=== PATIENT | female | born 1995 | race Caucasian/White ===

== ENCOUNTER 2022-07-09 15:22 | Emergency (ER) | payer OTHER, SELFPAY ==
[2022-07-09 15:24] VITALS: BP 118/78; PULSE 104; RESP 16; TEMP 36.7; O2SAT 98; BMI 28.9
--- NOTE | 2022-07-09 15:47 | EKG12_ITS ---
Test Reason : PALPS Blood Pressure : / mmHG Vent. Rate : 089 BPM Atrial Rate : 089 BPM P-R Int : 116 ms QRS Dur : 072 ms QT Int : 362 ms P-R-T Axes : 019 001 025 degrees QTc Int : 440 ms Sinus rhythm with sinus arrhythmia with occasional Premature ventricular complexes Otherwise normal ECG Confirmed by LUPIS VALENZUELA, PARVIZ ([id number]), deputy editor in chief VINH GAMBOA ([id number]) on 07/12/2022 12:57:52 PM Referred By: GULSHAN Confirmed By:PARVIZ BAUGH MD
--- NOTE | 2022-07-09 16:02 | EX.ED.DYSGE1 ---
HPI History of Present Illness Chief Complaint: Palpitations Informant: patient Onset/Context/Timing Onset: Days (Past 2 days intermittent) Context: Sudden Onset Timing: Intermittent (Duration varies from 1 to 2 minutes to 5-10.) Quality: Palpitations left-sided chest Location: Left-sided chest Current Severity: Gone Maximum Severity: Moderate Worsened by: Nothing specific Relieved by: Not applicable Associated Symptoms Associated Symptoms: None Narrative Narrative: Patient is a 26-year-old female with no significant past medical history on no medication. She denies smoking, alcohol use or drug use. There is no family history of cardiac disease. She denies heat or cold intolerance. She denies unintentional weight loss. She denies fever or chills. She denies leg pain, swelling discoloration. She denies history of VTE. There is no history of chest trauma. She does admit to 1 cup of coffee a day. Prior to the past 2 days she is never experienced this before. Prior similar symptoms: No Recent Illness/Hospitalization: No PFSH PFSH Medical History no medical history no medical history Home Medications NK 07/09/22 [History Last Taken Unknown] Allergy/AdvReac Type Severity Reaction Status Date / Time MALIGNANT HYPERTHERMIA AdvReac Severe Uncoded 07/09/22 15:29 Surgical History (Updated 07/09/22 @ 16:10 by Carie Castrejon) History of cholecystectomy Surgical History no surgical history no surgical history Social History (Updated 07/09/22 @ 16:[address] Octavio Marx MD) Smoking Status: Never smoker alcohol intake: never substance use type: does not use ROS ROS ED Constitutional Constitutional ED: Denies chills, fever(s), subjective, sweats or weight loss Eyes Eyes: Denies blurry vision, change in vision or diplopia ENT ENT ED: Denies rhinorrhea or sore throat Cardiovascular Cardiovascular: Reports palpitations; Denies chest pain, orthopnea, paroxysmal nocturnal dyspnea or racing heartbeat Respiratory/Chest Respiratory/Chest: Denies cough, dyspnea, dyspnea on exertion, orthopnea or paroxysmal nocturnal dyspnea Gastrointestinal Gastrointestinal: Denies abdominal pain, nausea or vomiting Neurologic Neurologic: Denies paresthesias or weakness Psychiatric Psychiatric: Denies anxiety Endocrine Endocrinology: Denies cold intolerance or heat intolerance Hematologic/Lymphatic Hematologic/Lymphatic: Reports none EXAM Physical Exam Const Vital Signs: 07/09/22 15:24 07/09/22 15:24 07/09/22 16:01 Temperature 98.0 F 98.0 F Temperature Source Temporal Temporal Pulse Rate 104 H 104 H Respiratory Rate 16 16 Respiratory Effort Normal Non-Labored Blood Pressure 118/78 118/78 Blood Pressure Mean 91 91 Pulse Ox 98 98 Oxygen Delivery Method Room Air Room Air 07/09/22 17:43 Temperature Temperature Source Pulse Rate 89 Respiratory Rate 17 Respiratory Effort Blood Pressure 104/63 Blood Pressure Mean 76 Pulse Ox 99 Oxygen Delivery Method Room Air Positive well nourished and well developed General Appearance ED: well developed and NAD; Negative for cyanotic, diaphoretic or pallor HEENT Reports moist mucous membranes HEENT Narrative: Head is atraumatic normocephalic. Ears normal. Nares patent. Uvula midline. No deviation of protrusion. There is no erythema or exudate. Negative for trauma Eyes PERRL and EOMs intact bilaterally General Eye ED: Negative for pale conjunctiva or scleral icterus Neck no lymphadenopathy, supple and no JVD Chest Wall inspection of chest normal and palpation of chest normal Resp normal respiratory effort and clear to auscultation bilaterally Cardio regular rate, regular rhythm, S1 normal heart sound, S2 normal heart sound and no murmurs GI normal to inspection, nondistended, normoactive bowel sounds, non-tender, non-distended and no masses; Negative for hepatosplenomegaly Back/Spine no CVA tenderness Cervical Spine: Negative for cervical spine tenderness Thoracic Spine / Upper Back: Negative for thoracic spinal tenderness Extremity normal to inspection Extremity Narrative: There is no asymmetry, swelling, discoloration, leg vein distention, palpable cords or tenderness along the distribution of the deep venous system. General Extremety ED: Negative for edema or tenderness General Extremity: Negative for edema Neuro oriented x3, CN's II-XII intact bilaterally and no sensory deficits noted Sensorium / Orientation: alert Sensory Exam: sensory level loss detected Psych mental status grossly normal Skin no rashes or lesions noted, no wounds and skin turgor normal General Skin Exam: Negative for jaundice or pallor MDM MDM MDM Narrative Medical decision making narrative: Reporting palpitation. Will place on monitor and see if there is any ectopy. EKG was obtained to determine if there is any evidence to suggest W PW or living long Ganong syndrome or short QT interval etc. Electrolytes were obtained to assess potassium and TSH was obtained to rule out thyroid disease. Patient was informed of results at 1850. Her questions were answered to her satisfaction. Should be discharged home. Lab Data Attestation: I reviewed the patient's lab results. Lab results narrative: Laboratory work-up is unremarkable. Labs: Laboratory Results - last 24 hr 07/09/22 16:05 Sodium 141 Potassium 3.6 Chloride 104 Carbon Dioxide 31.0 Anion Gap 6 BUN 13 Creatinine 0.87 Estim Creat Clear Calc 83.13 Est GFR (MDRD) Af Amer 100 Est GFR (MDRD) Non-Af 82 BUN/Creatinine Ratio 15.0 Glucose 117 H Calcium 9.0 TSH 0.66 Discharge Plan Triage Chief Complaint: Palpitations ED Provider: Octavio Marx Dx/Rx/DC Orders Clinical Impression: Palpitations, Premature ventricular beats Instructions: Premature Ventricular Contractions, ED Palpitations Prescriptions: No Action NK Primary Care Provider: Care Physician,No Primary Referrals: Jojo Cross MD [Med Staff - Health Information Technologist] - 1-2 Weeks Care Physician,No Primary [Primary Care Provider] - Disposition Disposition: Home, Self Care
[2022-07-09 16:34] LABS: Anion Gap 6 (5-15); BUN 13 mg/dL (7-18); Chloride 104 mmol/L (98-107); Creatinine, Serum 0.87 mg/dL (0.55-1.02); EST Glomerular Filtration Rate 82 mL/min (>60); Est Glom Filt Rate - Afr Amer 100 mL/min (>60); Estimated Creatinine Clearance 83.13 ml/min; Glucose 117 mg/dL (74-106); Potassium 3.6 mmol/L (3.5-5.1); Sodium Level 141 mmol/L (136-145); Thyroid Stim Hormone (TSH) 0.66 uIU/mL (0.358-3.74)
--- NOTE | 2022-07-09 17:09 | CM.ED ---
SW Note SW reviewed chart and noted that patient had no PCP. SW met with patient and introduced self and role. Patient confirmed she has no PCP. SW provided patient with [facility] Healthcare Provider Directory. No further issues or concerns voiced. Plan: Resources Provided Isabel LUDWIG
[2022-07-09 17:43] VITALS: BP 104/63; PULSE 89; RESP 17; O2SAT 99
[2022-07-09 19:09] VITALS: BP 116/57; PULSE 75; RESP 16; O2SAT 97
== END 2022-07-09 19:09 | disposition home or self-care (01) ==
PROVIDERS: Emergency Provider Emergency Medicine; Visit Provider Emergency Medicine
DX: R00.2 Palpitations (principal); I49.3 Ventricular premature depolarization
CPT/HCPCS: 80048; 84443; 93005; 99284; A4216

== ENCOUNTER 2023-01-27 04:03 | Emergency (ER) | payer MEDICAID, SELFPAY ==
[2023-01-27 04:04] VITALS: BP 136/87; PULSE 94; RESP 19; TEMP 37.2; O2SAT 98; BMI 29.9
--- NOTE | 2023-01-27 04:29 | EKG12_ITS ---
Test Reason : DYSRHYTHMIA Blood Pressure : / mmHG Vent. Rate : 066 BPM Atrial Rate : 066 BPM P-R Int : 126 ms QRS Dur : 078 ms QT Int : 406 ms P-R-T Axes : 028 000 014 degrees QTc Int : 425 ms Normal sinus rhythm Normal ECG Confirmed by ZIA RAGSDALE ([id number]), newspaper photo editor VINH GAMBOA ([id number]) on 01/31/2023 8:00:41 AM Referred By: ADALI Confirmed By:ZIA RAGSDALE
[2023-01-27 04:42] LABS: Absolute Lymphocyte Count 1.71 X10^3/uL (0.83-4.51); Absolute Neutrophil Count 3.7 X10^3/uL (2.0-7.7); Basophil# 0.05 X10^3/uL; Basophil% 0.8 % (0-1); Eosinophil# 0.09 X10^3/uL; Eosinophils% 1.5 % (0-5); Hematocrit 42.9 % (37-47); Hemoglobin 14.3 g/dL (12.0-15.0); Lymphocyte # 1.71 X10^3/ul (0.83-4.51); Lymphocyte % 27.9 % (19-41); Mean Corp Hgb Conc 33.3 g/dL (32-36); Mean Corpuscular Hgb 31.1 pg (27.0-32.0); Mean Corpuscular Volume 93.3 fL (81-99); Mean Platelet Vol. 9.7 fl (6.2-12.0); Monocyte# 0.52 X10^3/uL; Monocyte% 8.5 % (0-10); NRBC Flagged by Analyzer 0 % (0-5); Neutrophil # 3.74 X10^3/uL (2.7-7.7); Neutrophil % 60.8 % (47-70); Platelet Count 239 K/mm3 (150-450); RBC Distribution Width CV 11.5 % (11.6-14.6); RBC Distribution Width SD 39.1 fl (35.1-43.9); White Blood Count 6.1 K/mm3 (4.4-11.0)
--- NOTE | 2023-01-27 04:46 | EX.ED.DYSGE1 ---
HPI History of Present Illness Chief Complaint: Palpitations Narrative Narrative: Patient is a 27-year-old female who presents with complaint of palpitations. 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 She states that this evening she was sleeping when she was woken from sleep by her smart watch stating her heart rate was elevated. She states she has a home many EKG machine and then checked her rhythm on that to confirm it was fast and states it was going approximate 120 bpm. She states this is the first time this is ever happened while she was sleeping. She denies any illicit drug use or excessive stimulant use. She denies any family history of cardiac dysrhythmia. She denies any recent travel surgery or history of DVT/PE. She states she is feeling better at this time but with the palpitations occurring for the first time while asleep she presents for evaluation. PFSH PFS Home Medications NK 07/09/22 [History Last Taken Unknown] Allergy/AdvReac Type Severity Reaction Status Date / Time MALIGNANT HYPERTHERMIA AdvReac Severe Uncoded 07/09/22 15:29 Surgical History History of cholecystectomy Social History (Updated 07/09/22 @ 16:[address] Octavio Marx MD) Smoking Status: Never smoker alcohol intake: never substance use type: does not use ROS ROS ED Constitutional Constitutional ED: Denies chills or fever(s) ENT ENT ED: Denies sore throat Cardiovascular Cardiovascular: Reports palpitations and racing heartbeat; Denies chest pain Respiratory/Chest Respiratory/Chest: Denies cough or dyspnea Gastrointestinal Gastrointestinal: Denies abdominal pain, diarrhea, nausea or vomiting Genitourinary Genitourinary ED: Denies dysuria Musculoskeletal Musculoskeletal: Denies myalgias Integumentary Denies rash Neurologic Neurologic: Denies headache(s) Psychiatric Psychiatric: Denies anxiety Hematologic/Lymphatic Hematologic/Lymphatic: Denies easy bleeding or easy bruising EXAM Physical Exam Const Vital Signs: 01/27/23 04:04 01/27/23 04:07 Temperature 99 F Temperature Source Temporal Pulse Rate 94 Respiratory Rate 19 H Respiratory Effort Normal Blood Pressure 136/87 H Blood Pressure Mean 103 Pulse Ox 98 Oxygen Delivery Method Room Air Positive well nourished and well developed General Appearance ED: well developed; Negative for pallor Eyes PERRL and EOMs intact bilaterally Neck supple Neck Narrative: Thyroid is without nodule or goiter Resp normal respiratory effort and clear to auscultation bilaterally Cardio regular rate and regular rhythm Rate: other Other Details: Radial pulses are plus 2 out of 4 bilaterally are equal and symmetric Carotid pulses are equal and symmetric as well Extremity normal to inspection Extremity Narrative: No asymmetric edema no pitting edema negative Homans' sign bilaterally Neuro oriented x3, CN's II-XII intact bilaterally and no sensory deficits noted Sensorium / Orientation: alert Psych mental status grossly normal Skin no rashes or lesions noted General Skin Exam: Negative for pallor MDM MDM MDM Narrative Medical decision making narrative: Patient presented to the ER with spontaneous resolution of her palpitations/tachycardia. She denied any excessive stimulant use or illicit drug use or family history of abnormal rhythm or even previous diagnosis of a cardiac dysrhythmia just PVCs. However as this was the first time she had developed tachycardia while sleeping I did elect to perform basic laboratory testing. Work-up revealed no anemia or electrolyte disturbance or signs of cardiac damage or even elevation to the TSH to suggest hypo versus hyperthyroidism. The patient had a normal sinus rhythm on the monitor and EKG and felt perfectly normal upon reevaluation without any treatment. Therefore at this time I do feel patient most likely has inappropriate tachycardia syndrome but as there is still risk she could be developing a cardiac dysrhythmia such as atrial fibrillation atrial flutter or SVT or multifocal atrial tachycardia I did advise that she follow-up with her manager business once again and discussed wearing a Holter monitor or even having a referral to an EP physician. Patient and family are agreeable to this plan and therefore should be discharged at this time History & Record Review Discussion w/independent historian: Patient and Family Lab Data Attestation: I reviewed the patient's lab results. Labs: Laboratory Results - last 24 hr 01/27/23 01/27/23 01/27/23 04:37 04:37 04:50 WBC 6.1 RBC 4.60 Hgb 14.3 Hct 42.9 MCV 93.3 MCH 31.1 MCHC 33.3 RDW Std Deviation 39.1 RDW Coeff of Kody 11.5 L Plt Count 239 MPV 9.7 Immature Gran % (Auto) 0.500 Neut % (Auto) 60.8 Lymph % (Auto) 27.9 [place] % (Auto) 8.5 Eos % (Auto) 1.5 Baso % (Auto) 0.8 Absolute Neuts (auto) 3.7 Absolute Lymphs (auto) 1.71 Nucleated RBC % 0 Sodium 135 L Potassium 3.9 Chloride 109 H Carbon Dioxide 23.0 Anion Gap 3 L BUN 13 Creatinine 0.67 Estim Creat Clear Calc 106.98 Est GFR (MDRD) Af Amer 133 Est GFR (MDRD) Non-Af 110 BUN/Creatinine Ratio 19.3 Glucose 100 Calcium 8.8 Magnesium 1.9 Troponin I High Sens 3 TSH 2.65 Urine Test Negative Discharge Plan Triage Chief Complaint: Palpitations ED Provider: Jeff Major Dx/Rx/DC Orders Clinical Impression: Heart palpitations, Inappropriate sinus tachycardia Instructions: Your Heart's Electrical System, ED Palpitations Prescriptions: No Action NK Referrals: Carmelo Mills USED BUILDING MATERIALS YARD WORKER, USED BUILDING MATERIALS YARD WORKER-C [Non-Staff] - Activity Restrictions/Additional Instructions: Please follow-up with your manager business for repeat evaluation and to discuss need for Holter monitor testing and possible chopped strand operator referral. If you have any further concerns please return to the hospital for repeat evaluation Disposition Disposition: Home, Self Care
[2023-01-27 04:59] LABS: Internal QC Validated? YES +Cl - CLEAR BKGD; Pregnancy, Urine Negative Negative
[2023-01-27 05:07] LABS: Anion Gap 3 (5-15); BUN 13 mg/dL (7-18); BUN/Creat Ratio 19.3 RATIO (10-20); Calcium,Total 8.8 mg/dL (8.5-10.1); Chloride 109 mmol/L (98-107); Creatinine, Serum 0.67 mg/dL (0.55-1.02); EST Glomerular Filtration Rate 110 mL/min (>60); Est Glom Filt Rate - Afr Amer 133 mL/min (>60); Estimated Creatinine Clearance 106.98 ml/min; Glucose 100 mg/dL (74-106); Magnesium 1.9 mg/dL (1.6-2.6); Potassium 3.9 mmol/L (3.5-5.1); Sodium Level 135 mmol/L (136-145); Thyroid Stim Hormone (TSH) 2.65 uIU/mL (0.358-3.74); Troponin-I HS 3 pg/mL (3.0-54.0)
[2023-01-27 05:40] VITALS: BP 115/90; PULSE 86; RESP 16; O2SAT 99
== END 2023-01-27 05:41 | disposition home or self-care (01) ==
PROVIDERS: Emergency Provider Emergency Medicine; Visit Provider Emergency Medicine
DX: R00.2 Palpitations (principal); R00.0 Tachycardia, unspecified
CPT/HCPCS: 80048; 81025; 83735; 84443; 84484; 85025; 93005; 99282

== ENCOUNTER 2025-08-08 10:24 | Emergency (ER) | payer MEDICAID, SELFPAY ==
[2025-08-08 10:25] VITALS: BP 126/83; PULSE 96; RESP 17; TEMP 36.4; O2SAT 100; BMI 35.3
--- NOTE | 2025-08-08 10:41 | EX.ED.DYSGE1 ---
HPI History of Present Illness Chief Complaint: Headache Informant: patient Narrative Narrative: 29-year-old female presenting to the emergency room with headache and vomiting. Patient states that last night around 1800 hrs. she developed a left-sided headache described as mostly left frontal but also in the back of her head radiating up and over. She states it is still present this morning and she unexpectedly had emesis. She states that she tried to take Tylenol but threw that up. Patient states that after vomiting she looked in the mirror and she noted some red spots around her eyes and her forehead. She states that yesterday she was seen in urgent care for pain on the right side of her neck. Patient denies any URI symptoms diarrhea nausea or other rashes. Other than headache the patient denies any other neurologic findings such as arm or leg weakness paresthesias or speech changes. Patient denies any nasal congestion. She states that she generally feels unwell/fatigued. PFSH PFSH Home Medications ?Medication ?Instructions ?Recorded ?Last Taken ?Type ketorolac 10 mg tablet 10 mg PO Q8H PRN pain #9 tabs 08/08/25 Unknown Rx metoprolol succinate 25 mg 25 mg PO DAILY 08/08/25 Unknown History tablet,extended release 24 hr ondansetron 4 mg disintegrating 4 mg PO Q6H PRN PRN Nausea #15 tabs 08/08/25 Unknown Rx tablet Surgical History History of cholecystectomy Social History Smoking Status: Never smoker alcohol intake: never substance use type: does not use ROS ROS ED Constitutional Constitutional ED: Denies chills, fever(s) or weight loss Eyes Eyes: Denies change in vision or diplopia ENT ENT ED: Denies ear pain, rhinorrhea or sore throat Cardiovascular Cardiovascular: Denies chest pain, orthopnea, palpitations or racing heartbeat Respiratory/Chest Respiratory/Chest: Denies cough, dyspnea or orthopnea Gastrointestinal Gastrointestinal: Reports vomiting; Denies abdominal pain, diarrhea or nausea Genitourinary Genitourinary ED: Denies dysuria, hematuria or urinary frequency Musculoskeletal Musculoskeletal: Reports neck pain; Denies arthralgias, back pain or myalgias Integumentary Reports rash; Denies abscess Neurologic Neurologic: Reports headache(s); Denies paresthesias or weakness Psychiatric Psychiatric: Denies anxiety, depression, suicidal ideation or suicidal thoughts Endocrine Endocrinology: Denies polydipsia, polyphagia or polyuria Allergic/Immunologic Allergic/Immunologic ED: Denies mouth swelling, tongue swelling or urticaria EXAM Physical Exam Const Vital Signs: 08/08/25 10:25 Temperature 97.5 F L Temperature Source Oral Pulse Rate 96 Respiratory Rate 17 Blood Pressure 126/83 H Blood Pressure Mean 97 Pulse Ox 100 Oxygen Delivery Method Room Air Positive well nourished and well developed General Appearance ED: well developed HEENT Reports normocephalic, head/scalp atraumatic and moist mucous membranes HEENT Narrative: Small subconjunctival hemorrhage laterally in the left eye Eyes PERRL and EOMs intact bilaterally Neck no lymphadenopathy, supple and no JVD Neck Narrative: No meningeal signs Resp normal respiratory effort and clear to auscultation bilaterally Cardio regular rate, regular rhythm and no murmurs GI normal to inspection, nondistended, normoactive bowel sounds and non-tender Palpation: soft Back/Spine no CVA tenderness and normal ROM Extremity normal to inspection General Extremety ED: Negative for edema General Extremity: Negative for edema Neuro oriented x3 and CN's II-XII intact bilaterally Sensorium / Orientation: alert Motor Exam: strength 5/5 throughout Psych mental status grossly normal Mood & Affect: Negative for depressed or tearful Skin no rashes or lesions noted and no wounds Skin Narrative: There are small petechiae in the periorbital region some coalesce more so on the forehead. They do not mario. MDM MDM MDM Narrative Medical decision making narrative: Differential diagnosis includes but not limited to primary headache disorder viral syndrome meningitis URI viral gastritis CBC shows a white count of 7.8 with 79.4 neutrophils 16.3 lymphocytes. CMP shows a glucose of 111. test is negative. Patient received Zofran as well as a liter of IV fluids. At this point the patient can be discharged home. I will be writing for Zofran and Toradol at home. Would recommend continued home observation and hydration. Return if worsening or concerns History & Record Review Discussion w/independent historian: Patient Lab Data Attestation: I reviewed the patient's lab results. Labs: Laboratory Results - last 24 hr 08/08/25 10:48 WBC 7.8 RBC 4.93 Hgb 14.8 Hct 43.0 MCV 87.2 MCH 30.0 MCHC 34.4 RDW Std Deviation 37.3 RDW Coeff of Kody 11.7 Plt Count 361 MPV 9.2 Immature Gran % (Auto) 0.400 Neut % (Auto) 79.4 H Lymph % (Auto) 16.3 L [place] % (Auto) 3.1 Eos % (Auto) 0.3 Baso % (Auto) 0.5 Absolute Neuts (auto) 6.2 Absolute Lymphs (auto) 1.27 Nucleated RBC % 0 Sodium 140 Potassium 4.1 Chloride 103 Carbon Dioxide 25.6 Anion Gap 11 BUN 9 Creatinine 0.71 Estim Creat Clear Calc 127.22 Est GFR (MDRD) Non-Af 116 BUN/Creatinine Ratio 12.6 Glucose 111 H Calcium 9.4 Total Bilirubin 0.40 AST 15 ALT 10 Alkaline Phosphatase 73 Total Protein 8.0 Albumin 4.3 Globulin 3.6 Albumin/Globulin Ratio 1.2 Serum , Qual NEGATIVE Discharge Plan Triage Chief Complaint: Headache ED Provider: Chad Frankel Dx/Rx/DC Orders Clinical Impression: Headache, Vomiting Instructions: ED Headache Unspecified, ED Vomiting (Adult) Prescriptions: New ketorolac 10 mg tablet 10 mg PO Q8H PRN (Reason: pain) Qty: 9 0RF Rx Instructions: maximum total duration of 5 days from all oral, intranasal, or parenteral formulations ondansetron 4 mg tablet,disintegrating 4 mg PO Q6H PRN PRN (Reason: Nausea) Qty: 15 0RF No Action metoprolol succinate 25 mg tablet extended release 24 hr 25 mg PO DAILY Primary Care Provider: Adalgisa Mills Referrals: [facility] Doctor,Out of [Non-Staff, Medical] Activity Restrictions/Additional Instructions: Orally hydrate at home as best you can. Return if worsening or concerns. Monitor for new symptomology. Print Language: [place] Disposition Disposition: Home, Self Care
[2025-08-08 10:52] LABS: Hematocrit 43.0 % (37-47); Hemoglobin 14.8 g/dL (12.0-15.0); Immature Granulocytes Count 0.030 X10^3/uL (0.0-0.0); Mean Corp Hgb Conc 34.4 g/dL (32-36); Mean Corpuscular Volume 87.2 fL (81-99); Mean Platelet Vol. 9.2 fl (6.2-12.0); NRBC Flagged by Analyzer 0 % (0-5); Platelet Count 361 K/mm3 (150-450); RBC Distribution Width CV 11.7 % (11.6-14.6); RBC Distribution Width SD 37.3 fl (35.1-43.9); Red Blood Count 4.93 M/mm3 (4.2-5.4); White Blood Count 7.8 K/mm3 (4.4-11.0)
[2025-08-08 11:01] LABS: Internal QC Validated? YES +Cl - CLEAR BKGD; Pregnancy, Serum, hCG Quali. NEGATIVE Negative; Record Kit Lot#, Serum Preg. 0000980607
[2025-08-08] MEDS: Ketorolac 30 MG/ML Syringe IV (11:12)
[2025-08-08] MEDS: 0.9% Normal Saline (1000mL) 1,000 ML 1000 ML IV (11:12)
[2025-08-08 11:24] LABS: AST(SGOT) 15 U/L (<=31); Alanine Aminotransfer ALT/SGPT 10 U/L (<=34); Albumin, Serum 4.3 g/dL (3.5-5.0); Alkaline Phosphatase 73 U/L (35-104); Anion Gap 11 (5-15); BUN 9 mg/dL (4-19); BUN/Creat Ratio 12.6 RATIO (10-20); Calcium,Total 9.4 mg/dL (7.6-11.0); Carbon Dioxide 25.6 mmol/L (21.0-32.0); Chloride 103 mmol/L (98-108); Estimated Creatinine Clearance 127.22 ml/min (50-250); Globulin 3.6 g/dL (2.2-4.2); Glucose 111 mg/dL (70-99); Potassium 4.1 mmol/L (3.3-5.1)
[2025-08-08 12:17] VITALS: BP 128/67; PULSE 91; RESP 16; TEMP 36.6; O2SAT 99
--- NOTE | 2025-08-08 12:34 | ED.RN ---
pt was d/c and still in the parking lot stated that her one eye is swelling and watering and that this has happened before and normally a cold compress will help. this RN explained that she was more than welcome to come back. this RN asked if she was having difficulty seeing from the eye, pt stated that she is NOT having vision issues. pt states that this reaction in the past has be way worse and that she will just try the cold compress.
== END 2025-08-08 12:21 | disposition home or self-care (01) ==
PROVIDERS: Emergency Provider Emergency Medicine; PCP Nurse Practitioner Family; Visit Provider Emergency Medicine
DX: R51.9 Headache, unspecified (principal); R11.10 Vomiting, unspecified; Z79.899 Other long term (current) drug therapy
CPT/HCPCS: 80053; 84703; 85025; 96361; 96374; 96375; 99283; A4216; J2405